=== PATIENT | female | born 1955 | race Caucasian/White ===

== ENCOUNTER 2017-08-07 05:56 | Day surgery (SDC) | payer BC ==
[~2017-08-07] VITALS: Ht 160 cm; Wt 67.1 kg
[~2017-08-07 05:56] MED LIST: ALPRAZOLAM ER0.5 MG PO; AMOXICILLIN/CL875 MG PO; AMOXICILLIN500 MG PO; AMOXICILLIN875 MG PO; BENZONATATE200 MG PO; CHERATUSSIN OR; FEMHRT 1/5 OR; FLONASE NASAL50 MCG; FOSINOPRIL10 MG OR; GABAPENTIN400 MG OR; MELOXICAM7.5 MG PO; NEURONTIN100 MG PO; NEURONTIN400 MG OR; PRILOSEC20 MG/CAP OR; PROTONIX40 MG OR
[2017-08-07 08:15] VITALS: BP 109/68
== END 2017-08-07 08:20 | disposition home or self-care (01) | DRG 392 ==
LOC: ENDO 05:56 → ORM 07:30 → PO 07:30 → ENDO 07:30
PROVIDERS: ATTEND Internal Medicine Gastroenterology
PROC: 0DJD8ZZ Inspection of Lower Intestinal Tract, Via Natural or Artificial Opening Endoscopic (ICD-10-PCS; principal; 2017-08-07)
DX: R10.33 Periumbilical pain (principal); K66.8 Other specified disorders of peritoneum; R19.00 Intra-abdominal and pelvic swelling, mass and lump, unspecified site; K21.9 Gastro-esophageal reflux disease without esophagitis; R11.0 Nausea; R14.0 Abdominal distension (gaseous); K64.4 Residual hemorrhoidal skin tags; K64.8 Other hemorrhoids

== ENCOUNTER 2017-08-26 11:32 | Emergency (ER) | payer BC ==
[~2017-08-26] VITALS: Ht 160 cm; Wt 67.3 kg
[2017-08-26 12:51] LABS: HEMATOCRIT 42.9 % (37.0-47.0); HEMOGLOBIN 14.8 g/dl (12.0-16.0); IMMATURE GRANULOCYTES 0.3 % (0.0-1.0); MEAN CELL VOLUME 98.4 fL CALC (80.0-100.0); MEAN CORPUSCULAR HGB 33.9 pG CALC (26.0-32.0); MEAN CORPUSCULAR HGB CONC 34.5 g/L CALC (32.0-36.0); NEUT# 3.83 thou/uL (2.00-7.15); RED BLOOD COUNT 4.36 mill/uL (4.20-5.60); RED CELL DISTRI WIDTH 12.5 % (11.5-15.5)
[2017-08-26 13:05] LABS: ALBUMIN 4.4 g/dL (3.2-5.0); ALKALINE PHOSPHATASE 81 u/l (38-126); AMYLASE 46 u/l (30-110); ANION GAP 16 (6-22 (CALC)); BILIRUBIN, TOTAL 0.5 mg/dL (0.0-1.4); BUN 14 mg/dL (8-23); BUN/CREATININE RATIO 20 (12-20 (CALC)); CARBON DIOXIDE 29 mmol/l (22-30); CHLORIDE 102 mmol/l (95-108); CREATININE 0.7 mg/dL (0.5-1.0); GFR > 60 ML/MIN (>=60 (CALC)); GFR FOR AFR.AMER. > 60 ML/MIN (>=60 (CALC)); LIPASE 120 u/l (23-300); POTASSIUM 4.3 mmol/l (3.5-5.1); SGOT/AST 26 u/l (9-36); SGPT/ALT 27 u/l (11-66); SODIUM 143 mmol/l (137-146); TOTAL PROTEIN 7.4 g/dL (6.3-8.2)
[2017-08-26 13:11] LABS: URINE BILIRUBIN - DIPSTICK NEGATIVE (NEGATIVE); URINE BLOOD DIPSTICK NEGATIVE (NEGATIVE); URINE COLOR YELLOW; URINE GLUCOSE - DIPSTICK NEGATIVE (NEGATIVE); URINE KETONE NEGATIVE (NEGATIVE); URINE LEUK ESTERASE TRACE (NEGATIVE); URINE NITRITE - DIPSTICK NEGATIVE (Negative); URINE PH 6.5 (4.5-8.0); URINE PROTEIN - DIPSTICK NEGATIVE (NEG-TRACE); URINE UROBILINOGEN - DIPSTICK 0.2 E.U./dL (0.2)
[2017-08-26 13:24] LABS: URINE CLARITY SL CLOUDY
[2017-08-26 13:58] VITALS: BP 152/89
== END 2017-08-26 14:03 | disposition home or self-care (01) | DRG 392 ==
LOC: ED 11:32
PROVIDERS: Family Medicine
DX: R10.32 Left lower quadrant pain (principal); N20.0 Calculus of kidney; N94.89 Other specified conditions associated with female genital organs and menstrual cycle; R11.0 Nausea

== ENCOUNTER 2017-10-06 08:30 | Day surgery (SDC) | payer BC ==
[~2017-10-06] VITALS: Ht 160 cm; Wt 65.8 kg
[2017-10-06] VITALS (8 sets, daily range): BP systolic 100–130; BP diastolic 46–64
[~2017-10-06 08:30] MED LIST changes: -FOSINOPRIL10 MG OR; +FOSINOPRIL10 MG PO
[2017-10-06] MEDS ORDERED: TORADOL PO (12:54)
[2017-10-07 05:02] VITALS: BP 109/58
[2017-10-07 08:45] VITALS: BP 117/73
== END 2017-10-07 15:15 | disposition home or self-care (01) | DRG 417 ==
LOC: ORM 08:30 → MS2 13:05 → ORM 10-07 15:15
PROVIDERS: ATTEND Surgery
PROC: 0FT44ZZ Resection of Gallbladder, Percutaneous Endoscopic Approach (ICD-10-PCS; principal; 2017-10-06)
PROC: 0WBH4ZZ Excision of Retroperitoneum, Percutaneous Endoscopic Approach (ICD-10-PCS; 2017-10-06)
DX: K81.1 Chronic cholecystitis (principal); K68.9 Other disorders of retroperitoneum; Z91.048 Other nonmedicinal substance allergy status
CPT/HCPCS: J2710

== ENCOUNTER 2019-04-30 12:19 | Emergency (ER) | payer BC ==
[~2019-04-30] VITALS: Ht 160 cm; Wt 60.9 kg
[~2019-04-30 12:19] MED LIST changes: -GABAPENTIN400 MG OR; +GABAPENTIN400 MG PO; -PRILOSEC20 MG/CAP OR; +PRILOSEC20 MG/CAP PO; +TORADOL PO
[2019-04-30] MEDS ORDERED: GABAPENTIN100 MG PO (13:51)
[2019-04-30] MEDS ORDERED: IBUPROFEN600 MG PO (14:55)
[2019-04-30] MEDS ORDERED: ULTRAM50 MG PO (14:55)
[2019-04-30 15:00] VITALS: BP 134/80
== END 2019-04-30 15:09 | disposition home or self-care (01) | DRG 538 ==
LOC: ED 12:19
DX: S73.102A Unspecified sprain of left hip, initial encounter (principal); W18.39XA Other fall on same level, initial encounter